=== PATIENT | female | born 1955 | race Asian ===

== ENCOUNTER 2017-02-01 00:01 | Outpatient (RCR) | payer MEDICARE, MEDICAID, SELFPAY ==
[2015-06-21 10:34] VITALS: BP 143/87
[~2017-02-01 00:01] MED LIST: ATOR10TA84 PO; ATOR40TA28 PO; BISA5TAB82 PO; DOCU250C91 PO; GLIM4 PO; HALOD100I IM; METF10002 PO; METF500T4 PO; OLAN15TA2 PO; PIOG30TA10 PO; VITAMIN D + CALCIUM PO
== END 2017-03-02 | disposition home or self-care (01) ==
LOC: IOPBV 00:01
PROVIDERS: ATTEND Psychiatry & Neurology Psychiatry
DX: F20.0 Paranoid schizophrenia (principal); F17.210 Nicotine dependence, cigarettes, uncomplicated
CPT/HCPCS: 90832; 90853

== ENCOUNTER → 2017-09-23 | Outpatient (CLI) | payer MEDICARE, OTHER ==
[~2017-09-23] MED LIST changes: -ATOR10TA84 PO; -BISA5TAB82 PO; -METF500T4 PO
[2017-09-23 16:14] LABS: CHOL/HDL RATIO 2.4 (3.9-5.7)
[2017-09-23 16:18] LABS: HEMOGLOBIN A1C 9.8 % (4.5-6.2)
== END | disposition home or self-care (01) ==
LOC: LABMN 11:00
PROVIDERS: ATTEND Psychiatry & Neurology Psychiatry
DX: F20.9 Schizophrenia, unspecified (principal); R79.89 Other specified abnormal findings of blood chemistry
CPT/HCPCS: 82947; 83036

== ENCOUNTER → 2019-02-17 | Outpatient (CLI) | payer MEDICARE, OTHER ==
[~2019-02-17] MED LIST changes: +METF-446 PO; -METF10002 PO
== END | disposition home or self-care (01) ==
LOC: LABMN 14:50
PROVIDERS: ATTEND Psychiatry & Neurology Psychiatry
DX: F20.9 Schizophrenia, unspecified (principal)
CPT/HCPCS: 80173